=== PATIENT | male | born 1925 | race Caucasian/White ===

== ENCOUNTER → 2016-10-26 | Outpatient (CLI) | payer MEDICARE, BC ==
[~2016-10-26] MED LIST: ALEVE220 MG PO; ASCORBIC ACID250 MG PO; ASPIRIN EC325 MG PO; CELEXA40 MG PO; CIPRO500 MG PO; COLACE100 MG PO; COREG3.125 MG PO; FISH PO; LEVAQUIN 250 M250 MG PO; MAPAP500 MG PO; MILK OF MA400 MG/5 M PO; MOBIC7.5 MG PO; MYLANTA (MAG-AL30 ML PO; NAPROSYN500 MG PO; NEURONTIN100 MG PO; NICODERM (HABIT14 MG TRANS; NORCO 10-325 T1 EACH PO; OCUVITE SOFTGE1 EACH PO; PEPCID20 MG PO; PERCOCET 5-3251 EACH PO; PRILOSEC20 M1; PRILOSEC20 MG PO; PRINIVIL OR ZES10 MG PO; THERAGRAN-M1 TAB PO; TRAMADOL HCL50 MG PO; TYLENOL/COD#31 TAB PO; VITAMIN C500 MG PO; VITAMIN D1000 UNIT PO; VITAMIN E400 UNI4 PO; ZOCOR40 MG PO
== END | disposition disaster alternative care site (69) ==
LOC: GRAD 10-20 09:00
DX: N20.0 Calculus of kidney (principal)